=== PATIENT | female | born 1955 | race American Indian/Alaskan Native ===

== ENCOUNTER 2017-01-21 08:30 | Day surgery (SDC) | payer OTHER ==
[2015-03-25 14:30] VITALS: BMI 32.3
[2017-01-21 10:08] VITALS: RESP 20
[2017-01-21] MEDS ORDERED: Propofol 10 mg/ml Inj (20 ML) ONE (10:26)
[2017-01-21] MEDS ORDERED: Lidocaine Hydrochloride 5 ML INJ ONE (10:29)
[2017-01-21 13:12] VITALS: BP 119/63; PULSE 77; TEMP 97.5; O2SAT 98
== END 2017-01-21 12:27 | disposition home or self-care (01) ==
LOC: C.ENDO 08:30
PROVIDERS: ATTEND Internal Medicine
DX: D12.5 Benign neoplasm of sigmoid colon (principal); K64.8 Other hemorrhoids; K57.90 Diverticulosis of intestine, part unspecified, without perforation or abscess without bleeding
CPT/HCPCS: 45388; 82948; 88305; J2704